=== PATIENT | male | born 1985 | race African-American/Black ===

== ENCOUNTER 2023-05-14 11:59 | Emergency (ER) | payer OTHER ==
[~2023-05-14] VITALS: Ht 175.3 cm; Wt 72.7 kg
[2023-05-14 13:21] VITALS: BP 131/90; PULSE 87; RESP 16; TEMP 99; O2SAT 100
[2023-05-14] MEDS ORDERED: IBUP-1456 PO (13:25)
[2023-05-14] MEDS ORDERED: AUG875T PO (13:25)
== END 2023-05-14 13:48 | disposition home or self-care (01) ==
LOC: ER 11:59
DX: K04.7 Periapical abscess without sinus (principal); H66.91 Otitis media, unspecified, right ear; Z79.1 Long term (current) use of non-steroidal anti-inflammatories (NSAID); Z79.2 Long term (current) use of antibiotics
CPT/HCPCS: 41800